=== PATIENT | female | born 1965 | race Caucasian/White ===

== ENCOUNTER 2016-09-09 06:14 | Inpatient (IN) | payer MEDICAID ==
[~2016-09-09] VITALS: Ht 162.6 cm; Wt 81.2 kg
[2016-09-09] MEDS ORDERED: LIDOCAINE 2%HCL (LOCAL ANESTH.) INJ 20ML MDV ONE ×3 (06:56→08:48)
[2016-09-09] MEDS ORDERED: fentaNYL CITRATE 100 MCG/2 ML VL ONE (07:36)
[2016-09-09] MEDS ORDERED: MIDAZOLAM HCL 1MG/1ML-2 ML VIAL ONE (07:37)
[2016-09-09] MEDS ORDERED: ISOPROTERENOL HCL INJECTION 1 MG in D5W 5% 250 ML IV ONE (08:45)
[2016-09-09] MEDS ORDERED: ASPirin 81 mg TAB ONE (09:42)
[2016-09-09] MEDS ORDERED: ENOXAPARIN SOD 30 MG/0.3 ML SYRINGE SC ONE (10:45)
[2016-09-09] MEDS ORDERED: NITROGLYCERIN 0.4 MG SL TAB SL PRN (10:45)
[2016-09-09] MEDS ORDERED: ASPirin-EC 325mg tab PO ONE (10:45)
[2016-09-09] MEDS ORDERED: MORPHINE SULF INJ 2 MG/ML SYRINGE 1ML IV PRN (10:45)
[2016-09-09] MEDS ORDERED: BUPR-40 PO (10:48)
[2016-09-09] MEDS ORDERED: CONJ.6252 PO (10:48)
[2016-09-09 12:50] VITALS: BP 113/73
[2016-09-09 13:09] VITALS: BP 113/73
[2016-09-09] MEDS ORDERED: BUPRTAB PO (13:10)
[2016-09-09] MEDS: SODIUM CHLOR 0.9% PF (SALINE LOCK) 10ML VIAL IV SCH ×2 (14:00→21:59)
[2016-09-09] MEDS: buPROPion HCL 75 MG TAB PO SCH ×2 (16:13→21:59)
[2016-09-09] MEDS: HYDROcodone-ACET 5/325MG TAB PO PRN (16:16)
[2016-09-09 17:00] VITALS: BP 112/78
[2016-09-09 21:07] VITALS: BP 112/70
[2016-09-09] MEDS: ACETAMINOPHEN 500 MG TAB PO PRN (21:53)
[2016-09-10 05:17] VITALS: BP 111/69
[2016-09-10] MEDS: SODIUM CHLOR 0.9% PF (SALINE LOCK) 10ML VIAL IV SCH ×3 (05:37→21:53)
[2016-09-10 09:00] VITALS: BP 103/68
[2016-09-10] MEDS: ACETAMINOPHEN 500 MG TAB PO PRN ×2 (09:44→16:50)
[2016-09-10] MEDS: buPROPion HCL 75 MG TAB PO SCH ×2 (09:44→21:53)
[2016-09-10] MEDS: ASPirin-EC 325mg tab PO SCH (09:48)
[2016-09-10 13:00] VITALS: BP 99/72
[2016-09-10] MEDS: HYDROcodone-ACET 5/325MG TAB PO PRN (13:59)
[2016-09-10 17:00] VITALS: BP 103/66
[2016-09-10 21:08] VITALS: BP 103/60
[2016-09-11] MEDS: ACETAMINOPHEN 500 MG TAB PO PRN (04:08)
[2016-09-11 04:48] VITALS: BP 99/65
[2016-09-11] MEDS: SODIUM CHLOR 0.9% PF (SALINE LOCK) 10ML VIAL IV SCH (05:57)
[2016-09-11 09:00] VITALS: BP 97/51
[2016-09-11] MEDS: ASPirin-EC 325mg tab PO SCH (09:43)
[2016-09-11] MEDS: buPROPion HCL 75 MG TAB PO SCH (09:44)
[2016-09-11 13:00] VITALS: BP 112/63
== END 2016-09-11 15:49 | disposition home or self-care (01) | DRG 175 ==
LOC: CATH 06:14 → TELE-CENTR 06:15
PROVIDERS: ADMIT Specialist; ATTEND Specialist
PROC: 02583ZZ Destruction of Conduction Mechanism, Percutaneous Approach (ICD-10-PCS; principal; 2016-09-09)
PROC: 02K83ZZ Map Conduction Mechanism, Percutaneous Approach (ICD-10-PCS; 2016-09-09)
PROC: 4A0234Z Measurement of Cardiac Electrical Activity, Percutaneous Approach (ICD-10-PCS; 2016-09-09)
DX: I47.1 Supraventricular tachycardia (principal); F32.9 Major depressive disorder, single episode, unspecified; E11.9 Type 2 diabetes mellitus without complications; R53.1 Weakness; F17.200 Nicotine dependence, unspecified, uncomplicated; Z80.0 Family history of malignant neoplasm of digestive organs; Z82.49 Family history of ischemic heart disease and other diseases of the circulatory system; Z82.5 Family history of asthma and other chronic lower respiratory diseases; Z80.8 Family history of malignant neoplasm of other organs or systems; Z90.49 Acquired absence of other specified parts of digestive tract; Z90.721 Acquired absence of ovaries, unilateral; Z88.1 Allergy status to other antibiotic agents; Z88.8 Allergy status to other drugs, medicaments and biological substances
CPT/HCPCS: 70545; 70551; 76881; 93005; 93306; 93613; 93653; 93886; 99152; J2250; J7060

== ENCOUNTER 2019-08-06 13:58 | Emergency (ER) | payer MEDICAID ==
[~2019-08-06] VITALS: Ht 162.6 cm; Wt 92.1 kg
[~2019-08-06 13:58] MED LIST: BUPRTAB PO; CONJ.6252 PO
[2019-08-06 14:23] VITALS: BP 120/72
[2019-08-06] MEDS ORDERED: LIDOCAINE VISCOUS 2% 15ML UD PO ONE (16:15)
== END 2019-08-06 16:20 | disposition home or self-care (01) ==
LOC: ER 13:58
DX: K22.8 Other specified diseases of esophagus (principal); F17.210 Nicotine dependence, cigarettes, uncomplicated; Z88.1 Allergy status to other antibiotic agents; Z88.8 Allergy status to other drugs, medicaments and biological substances

== ENCOUNTER 2021-02-28 15:43 | Inpatient (IN) | payer MEDICAID ==
[~2021-02-28] VITALS: Ht 165.1 cm; Wt 92.9 kg
[2021-02-28 16:10] LABS: Basophils # (auto) 0.1 10 ^3/uL (0-0.2); Basophils % (auto) 0.9 % (0.0-2.0); Eosinophils # (auto) 0.4 10 ^3/uL (0-0.8); Eosinophils % (auto) 2.7 % (0.0-7.0); Hemoglobin 11.1 g/dL (12.2-16.2); Lymphocytes # (auto) 1.9 10 ^3/uL (0.4-5.4); Monocytes # (auto) 1.2 10 ^3/uL (0-1.3)
[2021-02-28 16:11] LABS: Hematocrit 31.6 % (36.0-46.0); Lymphocytes % (auto) 12.5 % (10.0-50.0); Mean Corpuscular Hemoglobin 30.8 pg (28.0-32.0); Mean Corpuscular Volume 87.9 fL (80.0-100.0); Monocytes % (auto) 7.8 % (0.0-12.0); Neutrophils # (auto) 11.7 10 ^3/uL (1.6-8.6); Neutrophils % (auto) 76.1 % (37.0-80.0); Red Cell Distribution Width 13.7 % (11.8-14.3); White Blood Cell 15.4 10^3/uL (4.4-10.8)
[2021-02-28 16:34] LABS: Albumin 2.8 g/dL (3.4-5.0); Anion Gap 6 (5-15); Blood Urea Nitrogen 12 mg/dL (7-18); Calcium 8.6 mg/dL (8.5-10.1); Carbon Dioxide 25 mmol/L (21-32); Chloride 106 mmol/L (98-107); Glucose 95 mg/dL (74-106); Sodium 137 mmol/L (136-145)
[2021-02-28 16:39] LABS: Alanine Aminotransferase 19 U/L (13-56); Alkaline Phosphatase 166 U/L (45-117); Aspartate Aminotransferase 11 U/L (15-37); BUN/Creatinine Ratio 13.6; Bilirubin, Total 0.4 mg/dL (0.2-1.0); GFR African American 86 mL/min; GFR Non-African American 71 mL/min; Total Protein 7.2 g/dL (6.4-8.2)
[2021-02-28] MEDS ORDERED: ACETAMINOPHEN 325 MG TAB PO ONE (16:48)
[2021-02-28 19:15] LABS: Urine Bacteria FEW /hpf (None Seen); Urine Blood TRACE /uL (Negative); Urine Mucus FEW (None Seen); Urine Specific Gravity 1.035 (1.001-1.035); Urine WBC 8 /hpf (0 - 5)
[2021-02-28] MEDS ORDERED: cefTRIAXone 1GM/50ML D5W 50 ML IV ONE (21:30)
[2021-02-28] MEDS ORDERED: MORPHINE SULF INJ 2 MG/ML SYRINGE 1ML IV PRN (22:15)
[2021-02-28] MEDS ORDERED: NITROGLYCERIN 0.4 MG SL TAB SL PRN (22:15)
[2021-02-28] MEDS: ACETAMINOPHEN 325 MG TAB PO PRN (23:18)
[2021-02-28 23:23] VITALS: BP 120/69
[2021-02-28 23:27] LABS: INR 1.02 (0.9-1.15)
[2021-03-01 01:49] VITALS: BP 109/70
[2021-03-01] MEDS: ALBUTEROL SULF 2.5 MG/0.5ML(0.5%) NEB SOLN NEB SCH ×4 (02:04→19:08)
[2021-03-01] MEDS: IPRATROPIUM BROM 0.5 MG/2.5ML INH SOL NEB SCH ×4 (02:04→19:08)
[2021-03-01] MEDS ORDERED: NAPR500T31 PO (02:13)
[2021-03-01 04:43] VITALS: BP 110/67
[2021-03-01] MEDS: ACETAMINOPHEN 325 MG TAB PO PRN ×2 (05:55→23:58)
[2021-03-01 09:00] VITALS: BP 123/72
[2021-03-01] MEDS: levoFLOXacin 500MG 100 ML IV SCH (09:17)
[2021-03-01] MEDS ORDERED: MEDROXYPROGESTERONE PO SCH (12:00)
[2021-03-01] MEDS ORDERED: CONJUGATED ESTROGENS PO SCH (12:00)
[2021-03-01] MEDS ORDERED: PREMPRO PO SCH ×2 (12:07→12:15)
[2021-03-01] MEDS ORDERED: IOHEXOL 300 MG/ML 100ML BOTTLE IJ ONE (12:08)
[2021-03-01] MEDS: HYDROcodone-ACET 5/325MG TAB PO PRN (12:50)
[2021-03-01 13:00] VITALS: BP 134/74
[2021-03-01] MEDS: PREMPRO PO SCH (14:26)
[2021-03-01 17:00] VITALS: BP 130/75
[2021-03-01] MEDS: MORPHINE SULF INJ 2 MG/ML SYRINGE 1ML IV PRN (18:39)
[2021-03-01] MEDS: buPROPion HCL 75 MG TAB PO SCH (18:39)
[2021-03-01 21:44] VITALS: BP 118/64
[2021-03-02] MEDS: IPRATROPIUM BROM 0.5 MG/2.5ML INH SOL NEB SCH ×4 (00:09→18:35)
[2021-03-02] MEDS: ALBUTEROL SULF 2.5 MG/0.5ML(0.5%) NEB SOLN NEB SCH ×4 (00:09→18:35)
[2021-03-02 04:24] VITALS: BP 129/70
[2021-03-02] MEDS: buPROPion HCL 75 MG TAB PO SCH (06:12)
[2021-03-02] MEDS: ACETAMINOPHEN 325 MG TAB PO PRN (06:13)
[2021-03-02] MEDS: levoFLOXacin 500MG 100 ML IV SCH (08:32)
[2021-03-02] MEDS: MORPHINE SULF INJ 2 MG/ML SYRINGE 1ML IV PRN ×3 (08:33→21:58)
[2021-03-02 09:00] VITALS: BP 124/69
[2021-03-02] MEDS: PREMPRO PO SCH (09:27)
[2021-03-02 13:00] VITALS: BP 130/76
[2021-03-02] MEDS ORDERED: GLYCOPYRROLATE 0.2 MG/ML 1ML VIAL IV ONE (13:15)
[2021-03-02] MEDS ORDERED: PHENYLEPHRINE HCL 10 MG/ML VL IV ONE (13:15)
[2021-03-02] MEDS ORDERED: NEOSTIGMINE 1 MG/ML INJ (10mg/10ML VIAL) IV ONE (13:15)
[2021-03-02] MEDS ORDERED: SUCCINYLCHOLINE CHLORIDE 20 MG/ML 10ML VIAL IV ONE (13:21)
[2021-03-02] MEDS ORDERED: MIDAZOLAM HCL 1MG/1ML-2 ML VIAL ONE (13:29)
[2021-03-02] MEDS ORDERED: fentaNYL CITRATE 100 MCG/2 ML VL ONE (13:29)
[2021-03-02] MEDS ORDERED: MEPERIDINE HCL (25 MG/ML) 1ML VIAL ONE (13:29)
[2021-03-02] MEDS ORDERED: DexAMETHasone SOD PHOS 10MG/1ML VIAL INJ ONE (13:35)
[2021-03-02] MEDS ORDERED: ETOMIDATE (2MG/ML) 20ML VIAL IV ONE (13:35)
[2021-03-02] MEDS ORDERED: BUPIVACAINE 0.25% INJ 50ML VIAL ONE (14:01)
[2021-03-02] MEDS ORDERED: HYDROmorphone HCL 2 MG/ML VL IV PRN (15:30)
[2021-03-02] MEDS ORDERED: LABETALOL HCL 5 MG/ML 4ML SYRINGE IV PRN (15:30)
[2021-03-02] MEDS ORDERED: ONDANSETRON HCL 4 MG/2 ML VIAL IV PRN (15:30)
[2021-03-02] MEDS ORDERED: MIDAZOLAM HCL 1MG/1ML-2 ML VIAL IV PRN (15:30)
[2021-03-02] MEDS ORDERED: MORPHINE SULFATE 4 MG/ML SYR/VIAL IV PRN (15:30)
[2021-03-02] MEDS ORDERED: KETOROLAC TROMETH 30 MG/ML 1ML VIAL IV ONE (15:30)
[2021-03-02] MEDS ORDERED: ePHEDrine SULFATE 50 MG/ML AMP IV PRN (15:30)
[2021-03-02 17:00] VITALS: BP 132/74
[2021-03-02 22:00] VITALS: BP 134/76
[2021-03-03] MEDS: ALBUTEROL SULF 2.5 MG/0.5ML(0.5%) NEB SOLN NEB SCH ×5 (00:40→23:56)
[2021-03-03] MEDS: IPRATROPIUM BROM 0.5 MG/2.5ML INH SOL NEB SCH ×5 (00:41→23:56)
[2021-03-03] MEDS: MORPHINE SULF INJ 2 MG/ML SYRINGE 1ML IV PRN ×6 (02:09→22:28)
[2021-03-03 04:50] VITALS: BP 136/78
[2021-03-03 05:47] LABS: Eosinophils # (auto) 0 10 ^3/uL (0-0.8); Hemoglobin 10.2 g/dL (12.2-16.2); Mean Corpuscular Hemoglobin 30.2 pg (28.0-32.0); Red Blood Cells 3.39 10^6/uL (4.0-5.20)
[2021-03-03 05:49] LABS: Basophils # (auto) 0 10 ^3/uL (0-0.2); Basophils % (auto) 0.4 % (0.0-2.0); Hematocrit 29.6 % (36.0-46.0); Lymphocytes % (auto) 7.6 % (10.0-50.0); Mean Corpuscular Hgb Conc. 34.6 g/dL (32.0-36.0); Mean Corpuscular Volume 87.4 fL (80.0-100.0); Monocytes % (auto) 7.4 % (0.0-12.0); Neutrophils # (auto) 11.2 10 ^3/uL (1.6-8.6); Neutrophils % (auto) 84.6 % (37.0-80.0); Red Cell Distribution Width 13.8 % (11.8-14.3); White Blood Cell 13.3 10^3/uL (4.4-10.8)
[2021-03-03 08:00] VITALS: BP 132/79
[2021-03-03] MEDS: HYDROcodone-ACET 5/325MG TAB PO PRN (08:48)
[2021-03-03 09:00] VITALS: BP 132/79
[2021-03-03] MEDS: levoFLOXacin 500MG 100 ML IV SCH (09:24)
[2021-03-03] MEDS: PREMPRO PO SCH (09:24)
[2021-03-03] MEDS: buPROPion HCL 75 MG TAB PO SCH ×2 (09:24→21:16)
[2021-03-03] MEDS ORDERED: buPROPion HCL 75 MG TAB PO SCH (10:00)
[2021-03-03 13:00] VITALS: BP 131/76
[2021-03-03 17:00] VITALS: BP 127/75
[2021-03-03] MEDS: ONDANSETRON HCL 4 MG/2 ML VIAL IV PRN (19:38)
[2021-03-03 22:00] VITALS: BP 133/76
[2021-03-04] VITALS (7 sets, daily range): BP systolic 114–137; BP diastolic 69–76
[2021-03-04] MEDS: MORPHINE SULF INJ 2 MG/ML SYRINGE 1ML IV PRN (02:31)
[2021-03-04] MEDS: ALBUTEROL SULF 2.5 MG/0.5ML(0.5%) NEB SOLN NEB SCH ×4 (06:44→19:27)
[2021-03-04] MEDS: IPRATROPIUM BROM 0.5 MG/2.5ML INH SOL NEB SCH ×4 (06:44→19:27)
[2021-03-04] MEDS: ACETAMINOPHEN 325 MG TAB PO PRN ×3 (08:07→18:23)
[2021-03-04] MEDS: ONDANSETRON HCL 4 MG/2 ML VIAL IV PRN ×2 (08:14→18:52)
[2021-03-04] MEDS: buPROPion HCL 75 MG TAB PO SCH ×2 (09:51→21:26)
[2021-03-04] MEDS: levoFLOXacin 500MG 100 ML IV SCH (09:51)
[2021-03-04] MEDS: PREMPRO PO SCH (09:51)
[2021-03-04] MEDS: ENOXAPARIN SOD 40 MG/0.4 ML SYRINGE SC SCH (09:51)
[2021-03-04] MEDS: HYDROcodone-ACET 5/325MG TAB PO PRN (09:52)
[2021-03-05] MEDS: ONDANSETRON HCL 4 MG/2 ML VIAL IV PRN (00:44)
[2021-03-05] MEDS: ACETAMINOPHEN 325 MG TAB PO PRN ×2 (00:45→15:42)
[2021-03-05] MEDS: MORPHINE SULF INJ 2 MG/ML SYRINGE 1ML IV PRN ×4 (02:07→22:52)
[2021-03-05 05:00] VITALS: BP 124/71
[2021-03-05] MEDS: ALBUTEROL SULF 2.5 MG/0.5ML(0.5%) NEB SOLN NEB SCH ×4 (07:54→18:33)
[2021-03-05] MEDS: IPRATROPIUM BROM 0.5 MG/2.5ML INH SOL NEB SCH ×4 (07:54→18:33)
[2021-03-05 09:00] VITALS: BP 117/72
[2021-03-05] MEDS: ENOXAPARIN SOD 40 MG/0.4 ML SYRINGE SC SCH (09:20)
[2021-03-05] MEDS: buPROPion HCL 75 MG TAB PO SCH ×2 (09:20→22:51)
[2021-03-05] MEDS: levoFLOXacin 500MG 100 ML IV SCH (09:20)
[2021-03-05] MEDS: PREMPRO PO SCH (09:20)
[2021-03-05] MEDS: HYDROcodone-ACET 5/325MG TAB PO PRN (09:21)
[2021-03-05 13:00] VITALS: BP 121/69
[2021-03-05] MEDS ORDERED: PANTOPRAZOLE 40 MG TAB PO ONE (13:00)
[2021-03-05 17:18] VITALS: BP 121/75
[2021-03-05 22:00] VITALS: BP 125/74
[2021-03-06] MEDS: ALBUTEROL SULF 2.5 MG/0.5ML(0.5%) NEB SOLN NEB SCH ×4 (00:22→19:26)
[2021-03-06] MEDS: IPRATROPIUM BROM 0.5 MG/2.5ML INH SOL NEB SCH ×4 (00:22→19:27)
[2021-03-06] MEDS: HYDROcodone-ACET 5/325MG TAB PO PRN ×2 (01:32→18:32)
[2021-03-06] MEDS: MORPHINE SULF INJ 2 MG/ML SYRINGE 1ML IV PRN ×3 (03:11→22:27)
[2021-03-06 05:00] VITALS: BP 113/70
[2021-03-06 06:07] LABS: Eosinophils # (auto) 0.2 10 ^3/uL (0-0.8)
[2021-03-06 06:09] LABS: Basophils # (auto) 0 10 ^3/uL (0-0.2); Basophils % (auto) 0.4 % (0.0-2.0); Eosinophils % (auto) 1.5 % (0.0-7.0); Hematocrit 29.5 % (36.0-46.0); Hemoglobin 10.3 g/dL (12.2-16.2); Lymphocytes # (auto) 1.8 10 ^3/uL (0.4-5.4); Lymphocytes % (auto) 16.4 % (10.0-50.0); Mean Corpuscular Hemoglobin 31.1 pg (28.0-32.0); Mean Corpuscular Hgb Conc. 34.9 g/dL (32.0-36.0); Mean Corpuscular Volume 89.1 fL (80.0-100.0); Monocytes % (auto) 8.5 % (0.0-12.0); Neutrophils # (auto) 8.1 10 ^3/uL (1.6-8.6); Neutrophils % (auto) 73.2 % (37.0-80.0); Nucleated Red Blood Cells % 0.1 %; Red Blood Cells 3.31 10^6/uL (4.0-5.20); Red Cell Distribution Width 13.6 % (11.8-14.3); White Blood Cell 11.1 10^3/uL (4.4-10.8)
[2021-03-06 06:29] LABS: BUN/Creatinine Ratio 17.1; Calcium 8.4 mg/dL (8.5-10.1); Magnesium 2.5 mg/dL (1.6-2.6)
[2021-03-06] MEDS: PANTOPRAZOLE 40 MG TAB PO SCH (08:53)
[2021-03-06] MEDS: PREMPRO PO SCH (08:53)
[2021-03-06 09:00] VITALS: BP 112/65
[2021-03-06] MEDS: ENOXAPARIN SOD 40 MG/0.4 ML SYRINGE SC SCH (10:00)
[2021-03-06] MEDS: buPROPion HCL 75 MG TAB PO SCH ×2 (10:00→22:08)
[2021-03-06] MEDS: levoFLOXacin 500MG 100 ML IV SCH (11:43)
[2021-03-06 13:00] VITALS: BP 123/73
[2021-03-06] MEDS ORDERED: IOHEXOL 350 MG/ML 100ML IJ ONE (17:05)
[2021-03-06 17:29] VITALS: BP 119/68
[2021-03-06 21:37] VITALS: BP 116/69
[2021-03-06] MEDS: CLINDAMYCIN 300MG IV 50 ML IV SCH (22:08)
[2021-03-07] VITALS (7 sets, daily range): BP systolic 108–135; BP diastolic 67–71
[2021-03-07] MEDS: IPRATROPIUM BROM 0.5 MG/2.5ML INH SOL NEB SCH ×4 (00:20→18:15)
[2021-03-07] MEDS: ALBUTEROL SULF 2.5 MG/0.5ML(0.5%) NEB SOLN NEB SCH ×4 (00:20→18:15)
[2021-03-07] MEDS: MORPHINE SULF INJ 2 MG/ML SYRINGE 1ML IV PRN (02:51)
[2021-03-07] MEDS: CLINDAMYCIN 300MG IV 50 ML IV SCH ×3 (06:30→22:00)
[2021-03-07] MEDS: buPROPion HCL 75 MG TAB PO SCH ×2 (09:14→22:00)
[2021-03-07] MEDS: PREMPRO PO SCH (09:14)
[2021-03-07] MEDS: PANTOPRAZOLE 40 MG TAB PO SCH (09:14)
[2021-03-07] MEDS: CEFTRIAXONE SODIUM 2 GM in D5W 5% 50 ML IV SCH (09:15)
[2021-03-07] MEDS: ENOXAPARIN SOD 40 MG/0.4 ML SYRINGE SC SCH (09:15)
[2021-03-07] MEDS: ACETAMINOPHEN 325 MG TAB PO PRN (09:27)
[2021-03-07] MEDS: HYDROcodone-ACET 5/325MG TAB PO PRN ×2 (14:31→21:16)
[2021-03-07 14:55] LABS: INR 1.07 (0.9-1.15); Partial Thromboplastin Time 30.8 sec (23.0-31.2)
[2021-03-08] MEDS: IPRATROPIUM BROM 0.5 MG/2.5ML INH SOL NEB SCH ×4 (00:19→14:16)
[2021-03-08] MEDS: ALBUTEROL SULF 2.5 MG/0.5ML(0.5%) NEB SOLN NEB SCH ×4 (00:19→14:17)
[2021-03-08 05:38] VITALS: BP 111/66
[2021-03-08] MEDS: CLINDAMYCIN 300MG IV 50 ML IV SCH ×2 (05:44→13:52)
[2021-03-08] MEDS: ACETAMINOPHEN 325 MG TAB PO PRN (05:50)
[2021-03-08 06:10] LABS: Basophils # (auto) 0.1 10 ^3/uL (0-0.2); Eosinophils # (auto) 0.2 10 ^3/uL (0-0.8); Hemoglobin 10.2 g/dL (12.2-16.2); Monocytes # (auto) 0.9 10 ^3/uL (0-1.3); Neutrophils % (auto) 75.7 % (37.0-80.0); White Blood Cell 12.1 10^3/uL (4.4-10.8)
[2021-03-08 06:15] LABS: Basophils % (auto) 0.5 % (0.0-2.0); Eosinophils % (auto) 1.9 % (0.0-7.0); Hematocrit 29.1 % (36.0-46.0); Lymphocytes # (auto) 1.7 10 ^3/uL (0.4-5.4); Lymphocytes % (auto) 14.4 % (10.0-50.0); Mean Corpuscular Hemoglobin 30.4 pg (28.0-32.0); Mean Corpuscular Hgb Conc. 34.9 g/dL (32.0-36.0); Monocytes % (auto) 7.5 % (0.0-12.0); Neutrophils # (auto) 9.1 10 ^3/uL (1.6-8.6); Red Blood Cells 3.35 10^6/uL (4.0-5.20); Red Cell Distribution Width 13.9 % (11.8-14.3)
[2021-03-08 06:35] LABS: Potassium 3.7 mmol/L (3.5-5.1)
[2021-03-08 06:41] LABS: BUN/Creatinine Ratio 13.4; Calcium 8.2 mg/dL (8.5-10.1); Magnesium 2.5 mg/dL (1.6-2.6)
[2021-03-08 08:30] VITALS: BP 125/74
[2021-03-08] MEDS: buPROPion HCL 75 MG TAB PO SCH (09:38)
[2021-03-08] MEDS: PANTOPRAZOLE 40 MG TAB PO SCH (09:38)
[2021-03-08] MEDS: CEFTRIAXONE SODIUM 2 GM in D5W 5% 50 ML IV SCH (09:39)
[2021-03-08] MEDS: ENOXAPARIN SOD 40 MG/0.4 ML SYRINGE SC SCH (10:00)
[2021-03-08] MEDS: PREMPRO PO SCH (10:17)
[2021-03-08 12:30] VITALS: BP 104/62
[2021-03-08] MEDS ORDERED: LIDOCAINE 1% (LOCAL ANESTH.) PF 5ml SDV ID ONE (13:00)
[2021-03-08] MEDS: HYDROcodone-ACET 5/325MG TAB PO PRN (13:52)
[2021-03-08 16:29] VITALS: BP 104/62
[2021-03-08 17:00] VITALS: BP 127/77
[2021-03-08] MEDS ORDERED: SODIUM CHLOR 0.9% PF (SALINE LOCK) 10ML VIAL/SYR IV SCH (22:00)
== END 2021-03-08 17:30 | disposition home health service (06) | DRG 137 ==
LOC: ER 15:43 → TELE 22:04 → TELE-EAST 23:28
PROVIDERS: ADMIT Internal Medicine; ATTEND Internal Medicine
PROC: 0BNL0ZZ Release Left Lung, Open Approach (ICD-10-PCS; 2021-03-02)
PROC: 0W9B00Z Drainage of Left Pleural Cavity with Drainage Device, Open Approach (ICD-10-PCS; principal; 2021-03-02 13:33)
PROC: 0WPBX0Z Removal of Drainage Device from Left Pleural Cavity, External Approach (ICD-10-PCS; 2021-03-06)
PROC: 02HV33Z Insertion of Infusion Device into Superior Vena Cava, Percutaneous Approach (ICD-10-PCS; 2021-03-08)
PROC: B548ZZA Ultrasonography of Superior Vena Cava, Guidance (ICD-10-PCS; 2021-03-08)
DX: J86.9 Pyothorax without fistula (principal); J96.01 Acute respiratory failure with hypoxia; J90 Pleural effusion, not elsewhere classified; E66.01 Morbid (severe) obesity due to excess calories; E88.09 Other disorders of plasma-protein metabolism, not elsewhere classified; R16.0 Hepatomegaly, not elsewhere classified; Z20.822 Contact with and (suspected) exposure to COVID-19; I47.1 Supraventricular tachycardia; N95.9 Unspecified menopausal and perimenopausal disorder; D50.8 Other iron deficiency anemias; D47.3 Essential (hemorrhagic) thrombocythemia; F32.9 Major depressive disorder, single episode, unspecified; F41.9 Anxiety disorder, unspecified; Z68.35 Body mass index [BMI] 35.0-35.9, adult; Z90.49 Acquired absence of other specified parts of digestive tract; Z79.899 Other long term (current) drug therapy; Z88.1 Allergy status to other antibiotic agents; Z88.0 Allergy status to penicillin; Z88.8 Allergy status to other drugs, medicaments and biological substances
CPT/HCPCS: 36415; 36569; 36600; 71045; 71250; 71275; 76604; 80048; 80053; 81001; 82150; 82805; 83605; 83615; 83735; 83986; 84484; 85025; 85049; 85610; 85730; 86850; 86900; 86901; 87040; 87070; 87075; 87205; 87426; 89051; 93005; 94640; 96365; 96367; 97110; 97116; 97530; A4565; G0378; J0330; J0696; J1100; J1956; J2250; J2405; J3490; J7060

== ENCOUNTER 2023-07-30 08:02 | Day surgery (SDC) | payer MEDICAID ==
[~2023-07-30] VITALS: Ht 162.6 cm; Wt 92.5 kg
[~2023-07-30 08:02] MED LIST changes: +FENO48TA13 OR; +PRAV20TA3 PO
[2023-07-30] MEDS ORDERED: HEPARIN SODIUM (PORCINE) 5000 UNITS/ML 1ML VIAL ONE (11:48)
[2023-07-30] MEDS ORDERED: VERAPAMIL 2.5MG/ML INJ 2ML VIAL IV ONE (11:48)
[2023-07-30] MEDS ORDERED: fentaNYL CITRATE 100 MCG/2 ML VL ONE (11:48)
[2023-07-30] MEDS ORDERED: ANGIOMAX 250 MG VIAL IV ONE (11:48)
[2023-07-30] MEDS ORDERED: MIDAZOLAM HCL 2MG/2ML 2ml VIAL (1mg/ml) ONE (11:49)
[2023-07-30] MEDS ORDERED: LIDOCAINE 2%HCL (LOCAL ANESTH.) INJ 20ML MDV ONE (11:49)
[2023-07-30] MEDS ORDERED: SODIUM CHL 0.9% 0 ML ONE (11:49)
[2023-07-30] MEDS ORDERED: IODIXANOL 320MG/ML 100ML BTL IV ONE (11:49)
[2023-07-30] MEDS ORDERED: DOCU-94 PO (13:38)
[2023-07-30] MEDS ORDERED: ASCOCRY2 OR (13:38)
[2023-07-30] MEDS ORDERED: MULT-1018 PO (13:38)
[2023-07-30] MEDS ORDERED: BACL10TA PO (13:38)
[2023-07-30] MEDS ORDERED: CHOL500035 PO (13:38)
[2023-07-30] MEDS ORDERED: BUPR150T18 PO (13:38)
== END 2023-07-30 14:34 | disposition home or self-care (01) ==
LOC: CATH 08:02
PROVIDERS: ATTEND Internal Medicine Cardiovascular Disease
DX: I25.119 Atherosclerotic heart disease of native coronary artery with unspecified angina pectoris (principal); R94.39 Abnormal result of other cardiovascular function study; E78.5 Hyperlipidemia, unspecified; F32.A Depression, unspecified; E66.9 Obesity, unspecified; Z68.35 Body mass index [BMI] 35.0-35.9, adult; Z88.1 Allergy status to other antibiotic agents; Z88.8 Allergy status to other drugs, medicaments and biological substances; Z80.0 Family history of malignant neoplasm of digestive organs; Z82.5 Family history of asthma and other chronic lower respiratory diseases; Z87.891 Personal history of nicotine dependence; Z82.49 Family history of ischemic heart disease and other diseases of the circulatory system; Z72.89 Other problems related to lifestyle; Z79.899 Other long term (current) drug therapy
CPT/HCPCS: 93458; C1887; C1894; J1644; J2250; J3010; Q9967; 99152

== ENCOUNTER 2024-06-24 17:00 | Emergency (ER) | payer MEDICAID, OTHER ==
[~2024-06-24] VITALS: Ht 162.6 cm; Wt 85.5 kg
[~2024-06-24 17:00] MED LIST changes: +ASCOCRY2 OR; +BACL10TA PO; +BUPR150T18 PO; -BUPRTAB PO; +CHOL500035 PO; +DOCU-94 PO; +MULT-1018 PO
[2024-06-24 20:15] VITALS: BP 133/64; PULSE 69; RESP 18; TEMP 97.7; O2SAT 95
[2024-06-24] MEDS: METOCLOPRAMIDE HCL 10 MG TAB PO ONE (20:18)
[2024-06-24] MEDS: ACETAMINOPHEN 325 MG TAB PO ONE (20:18)
== END 2024-06-24 20:17 | disposition home or self-care (01) ==
LOC: ER 17:00
DX: S60.222A Contusion of left hand, initial encounter (principal); I10 Essential (primary) hypertension; F41.9 Anxiety disorder, unspecified; R51.9 Headache, unspecified; Z79.899 Other long term (current) drug therapy; Z88.1 Allergy status to other antibiotic agents; Z88.8 Allergy status to other drugs, medicaments and biological substances; Z90.49 Acquired absence of other specified parts of digestive tract; Z91.041 Radiographic dye allergy status; Z87.891 Personal history of nicotine dependence; Y04.2XXA Assault by strike against or bumped into by another person, initial encounter; Y93.89 Activity, other specified; Y92.89 Other specified places as the place of occurrence of the external cause; Y99.8 Other external cause status
CPT/HCPCS: 73130